=== PATIENT | male | born 1975 | race Caucasian/White ===

== ENCOUNTER 2018-03-05 03:19 | Emergency (ER) | payer MEDICAID ==
[~2018-03-05] VITALS: Wt 84.6 kg
[2018-03-05] MEDS ORDERED: ONDANSETRON 4 MG INJ IV STA (04:36)
[2018-03-05] MEDS ORDERED: SOD CHLORIDE 0.9% 500 ML IV STA (04:36)
[2018-03-05] MEDS ORDERED: morphine 4 MG/ML VIAL IV STA (04:36)
[2018-03-05] MEDS ORDERED: ACET-141 PO (05:17)
--- NOTE | 2018-03-05 05:48 | ERD ---
ER Documentation Chief Complaint Chief Complaint AP X'S 1 DAY HPI 42-year-old with abdominal pain for 1 day. Pain is mild to moderate intensity no exacerbating relieving factors. Nonlocalized. Diffuse. Mild nausea but no vomiting. No fevers or chills. ROS All systems reviewed and are negative except as per history of present illness. Medications Home Meds Reported Medications Acetaminophen* (Acetaminophen*) 500 MG Extra Strength Tablet, 1000 MG PO Q4H PRN for PAIN AND OR ELEVATED TEMP, TAB 03/05/18 Allergies Allergies: Coded Allergies: No Known Allergy (Unverified , 03/05/18) PMhx/Soc Medical and Surgical Hx: pt denies Medical Hx, pt denies Surgical Hx Hx Alcohol Use: No Hx Substance Use: No Hx Tobacco Use: No Smoking Status: Never smoker Physical Exam Vitals Vital Signs Date Temp Pulse Resp B/P (MAP) Pulse Ox O2 O2 Flow FiO2 Time Delivery Rate 03/05/18 97.5 76 18 170/104 98 03:21 (126) Physical Exam Const: No acute distress Head: Atraumatic Eyes: Normal Conjunctiva ENT: Normal External Ears, Nose and Mouth. Neck: Full range of motion. No meningismus. Resp: Clear to auscultation bilaterally Cardio: Regular rate and rhythm, no murmurs Abd: Soft, non tender, non distended. Normal bowel sounds Skin: No petechiae or rashes Back: No midline or flank tenderness Ext: No cyanosis, or edema Neur: Awake and alert Psych: Normal Mood and Affect Result Diagram: 03/05/18 0418 03/05/18 0418 Results 24 hrs Laboratory Tests Test 03/05/18 04:18 White Blood Count 9.4 10^3/ul Red Blood Count 4.88 10^6/ul Hemoglobin 14.1 g/dl Hematocrit 40.8 % Mean Corpuscular Volume 83.6 fl Mean Corpuscular Hemoglobin 28.9 pg Mean Corpuscular Hemoglobin Concent 34.6 g/dl Red Cell Distribution Width 12.6 % Platelet Count 302 10^3/UL Mean Platelet Volume 10.0 fl Immature Granulocytes % 0.500 % Neutrophils % 78.3 % Lymphocytes % 14.6 % Monocytes % 5.7 % Eosinophils % 0.6 % Basophils % 0.3 % Nucleated Red Blood Cells % 0.0 /100WBC Immature Granulocytes # 0.050 10^3/ul Neutrophils # 7.4 10^3/ul Lymphocytes # 1.4 10^3/ul Monocytes # 0.5 10^3/ul Eosinophils # 0.1 10^3/ul Basophils # 0.0 10^3/ul Nucleated Red Blood Cells # 0.0 10^3/ul Urine Color YELLOW Urine Clarity CLOUDY Urine pH 7.0 Urine Specific [place] 1.020 Urine Ketones 1+ mg/dL Urine Nitrite NEGATIVE mg/dL Urine Bilirubin NEGATIVE mg/dL Urine Urobilinogen NEGATIVE mg/dL Urine Leukocyte Esterase NEGATIVE Shay/ul Urine Microscopic RBC 2 /HPF Urine Microscopic WBC 10 /HPF Urine Amorphous Crystals FEW /HPF Urine Bacteria FEW /HPF Urine Mucus FEW /HPF Urine Hemoglobin NEGATIVE mg/dL Urine Glucose NEGATIVE mg/dL Urine Total Protein NEGATIVE mg/dl Sodium Level 138 mmol/L Potassium Level 3.9 mmol/L Chloride Level 103 mmol/L Carbon Dioxide Level 26 mmol/L Anion Gap 9 Blood Urea Nitrogen 13 mg/dl Creatinine 0.76 mg/dl Est Glomerular Filtrat Rate mL/min > 60 mL/min Glucose Level 119 mg/dl Calcium Level 9.3 mg/dl Total Bilirubin 0.2 mg/dl Direct Bilirubin 0.00 mg/dl Indirect Bilirubin 0.2 mg/dl Aspartate Amino Transf (AST/SGOT) 48 IU/L Alanine Aminotransferase (ALT/SGPT) 48 IU/L Alkaline Phosphatase 102 IU/L Total Protein 8.0 g/dl Albumin 4.4 g/dl Globulin 3.60 g/dl Albumin/Globulin Ratio 1.22 Lipase 77 U/L Current Medications Medications Dose Sig/Savage Start Time Status Last (Trade) Ordered Route PRN Stop Time Admin Dose Reason Admin Sodium 500 ml @ Q1H STAT 03/05/18 DC 03/05/18 Chloride 500 mls/hr IV 04:36 04:58 03/05/18 05:35 Morphine 4 mg ONCE STAT 03/05/18 DC 03/05/18 Sulfate IV 04:36 04:58 (morphine) 03/05/18 04:38 Ondansetron 4 mg ONCE STAT 03/05/18 DC 03/05/18 HCl (Zofran IV 04:36 04:57 Inj) 03/05/18 04:38 Procedures/MDM Chest X-ray 1V Interpreted by me: Soft Tissue: No acute a bnormalities Bones: No acute abnormalities Mediastinum/Cardiac Silhouette/Lungs: [No acute abnormalities] Medical decision making: Patient's gastrointestinal symptoms have stabilized while in the department. No evidence of severe dehydration, sepsis, or surgical abdomen. Extensive discussion with family and patient that occult disease cannot be ruled out. 8 hour recheck for repeat abdominal exam is planned. Departure Diagnosis: Primary Impression: Abdominal pain Abdominal location: unspecified location Qualified Codes: R10.9 - Unspecif ied abdominal pain Condition: Stable GERRI VELASCO Mar 05, 2018 05:48
[2018-03-05] MEDS ORDERED: ONDA4TAB14 PO (05:53)
[2018-03-05] MEDS ORDERED: DOCU-144 PO (05:53)
[2018-03-05] MEDS ORDERED: DICY10CA40 PO (05:53)
[2018-03-05 06:00] VITALS: BP 105/82; PULSE 64; RESP 18
== END 2018-03-05 06:20 | disposition home or self-care (01) ==
LOC: E/R 03:19
DX: R10.9 Unspecified abdominal pain (principal)
CPT/HCPCS: 36415; 71045; 74176; 80053; 81001; 83690; 85025; 96361; 96374; 96375; J2270; J2405; J7040; Z7502